=== PATIENT | female | born 2000 | race Caucasian/White ===

== ENCOUNTER 2021-06-22 00:38 | Emergency (ER) | payer MEDICAID, OTHER ==
[2021-06-22] MEDS ORDERED: Sodium Chloride 0.9% 10 ML Syringe FLUSH PRN (00:52)
[2021-06-22] MEDS ORDERED: Ketorolac 30 MG/ML SDV IVPUSH ONE (01:22)
[2021-06-22] MEDS ORDERED: diphenhydrAMINE 50 MG/ML SDV IVPUSH ONE (01:26)
[2021-06-22] MEDS ORDERED: Metoclopramide 10 MG/2 ML SDV IVPUSH ONE (01:26)
[2021-06-22] MEDS ORDERED: Lactated Ringers 1,000 ML IV ONE (01:26)
--- NOTE | 2021-06-22 01:32 | EDM.PDOC ---
ED HPI GENERAL MEDICAL PROBLEM - General Chief Complaint: General Stated Complaint: STAHL, CONGESTION, COUGH,LETHARGY Time Seen by Provider: 06/22/21 01:11 Source of Information: Reports: Patient - History of Present Illness INITIAL COMMENTS - FREE TEXT/NARRATIVE: Yanet is a 20 y/o female who presents to the ER with complaints of a headache that she reports she has had for 4 days now. She has tried OTC Tylenol and Motrin with no relief. Denies nausea or vomiting. Has not had a headache that has been this bad or last this many days before. She also does have a mild cough. Son was sick with URI about a week ago and had +RSV test. Headache Pain Score (Numeric/FACES): 9 - Related Data Allergies Allergy/AdvReac Type Severity Reaction Status Date / Time No Known Allergies Allergy Verified 06/22/21 00:48 Home Meds: Home Meds . [No Known Home Meds] 06/22/21 [History] Past Medical History HEENT History: Reports: Impaired Vision Psychiatric History: Reports: Anxiety, Depression ED ROS GENERAL - Review of Systems Review Of Systems: See Below Constitutional: Reports: No Symptoms HEENT: Reports: Other (Mild congestion) Respiratory: Reports: Cough Cardiovascular: Reports: No Symptoms Endocrine: Reports: No Symptoms GI/Abdominal: Reports: No Symptoms : Reports: No Symptoms Musculoskeletal: Reports: No Symptoms Skin: Reports: No Symptoms Neurological: Reports: Headache Psychiatric: Reports: No Symptoms Hematologic/Lymphatic: Reports: No Symptoms Immunologic: Reports: No Symptoms ED EXAM, GENERAL - Physical Exam Exam: See Below General Appearance: Alert, WD/WN, No Apparent Distress (Adult female) Eye Exam: Bilateral Eye: PERRL Ears: Normal External Exam, Normal Canal, Hearing Grossly Normal, Normal TMs Nose: Normal Inspection, Normal Mucosa, No Blood Throat/Mouth: Normal Inspection, Normal Lips, Normal Teeth, Normal Voice Head: Atraumatic, Normocephalic Neck: Normal Inspection, Supple Respiratory/Chest: No Respiratory Distress, Lungs Clear Cardiovascular: Normal Peripheral Pulses, Regular Rate, Rhythm, No Murmur GI/Abdominal: Normal Bowel Sounds, Soft, Non-Tender (Female) Exam: Deferred Rectal (Female) Exam: Deferred Back Exam: Normal Inspection, Full Range of Motion Extremities: Normal Inspection, Normal Range of Motion, No Pedal Edema, Normal Capillary Refill Neurological: Alert, Oriented, CN II-XII Intact, Normal Cognition Psychiatric: Normal Affect, Normal Mood Skin Exam: Warm, Dry, Intact, Normal Color Lymphatic: No Adenopathy Course - Vital Signs Text/Narrative:: 0111 The patient was seen by the SALES SERVICE REPRESENTATIVE. Labs ordered. Consider COVID or Migraine as main differentials at this time. A liter of LR, Toradol 30mg IVP, Benadryl 50mg IVP, and Reglan 20mg IVP ordered. 1425 Labs reviewed, CBC WBC=15.9 with mildly elevated neutrophils. COVID neg. Patient feeling better and headache decreasing. Will finish fluids and then send pt home. Note mildly elevated WBC, but no infection source. Will await further sx prior to abx. Written instructions given and the patient was discharged to home in stable condition. Last Recorded V/S: Last Vital Signs Temp 37.6 C 06/22/21 00:39 Pulse 90 06/22/21 00:39 Resp 18 06/22/21 00:39 BP 133/73 06/22/21 01:24 Pulse Ox 98 06/22/21 00:39 - Orders/Labs/Meds Orders: Active Orders 24 hr Category Date Time Status BASIC METABOLIC PANEL,POC [POC] Stat Lab 06/22/21 01:18 Results CORONAVIRUS COVID-19 ARTIS [MOLEC] Routine Lab 06/22/21 00:51 Received Sodium Chloride 0.9% [Saline Flush] Med 06/22/21 00:52 Active 10 ml FLUSH ASDIRECTED PRN Isolation [COMM] Routine Oth 06/22/21 00:52 Active Isolation [COMM] Routine Oth 06/22/21 00:52 Active Saline Lock Insert [OM.PC] Routine Oth 06/22/21 00:52 Ordered Medication Orders Sodium Chloride (Sodium Chloride 0.9% 10 Ml Syringe) 10 ml FLUSH ASDIRECTED PRN PRN Reason: Keep Vein Open Labs: Laboratory Tests 06/22/21 06/22/21 06/22/21 Range/Units 00:51 00:51 01:18 WBC 15.9 H (4.0-10.2) K/uL RBC 4.62 (3.77-5.09) M/uL Hgb 13.9 (11.7-15.5) g/dL Hct 42.0 (34.0-46.0) % MCV 90.7 (84.0-98.0) fL MCH 30.1 (28.2-33.3) pg MCHC 33.2 (31.7-36.0) g/dL RDW 12.5 (11.2-14.1) % Plt Count 305 (150-350) K/uL Neut % (Auto) 66.0 (45.0-80.0) % Lymph % (Auto) 23.2 (10.0-50.0) % [place]ie % (Auto) 7.2 (2.0-14.0) % Eos % (Auto) 3.3 (0.0-5.0) % Baso % (Auto) 0.3 (0.0-2.0) % Neut # (Auto) 10.52 H (1.40-7.00) K/uL Lymph # (Auto) 3.69 H (0.50-3.50) K/uL [place] # (Auto) 1.14 H (0.00-1.00) K/uL Eos # (Auto) 0.53 H (0.00-0.50) K/uL Baso # (Auto) 0.04 (0.00-0.20) K/uL POC Sodium (138-146) mmol/L Sodium Cancelled POC Potassium (3.5-4.5) mmol/L Potassium Cancelled POC Chloride (98-107) mmol/L Chloride Cancelled Carbon Dioxide Cancelled POC Total CO2 (23-30) mmol/L Anion Gap Cancelled POC Anion Gap (7-16) mmol/L POC BUN (8-26) mg/dL BUN Cancelled Creatinine Cancelled POC Creatinine (0.51-1.19) mg/dL Est Cr Clr Drug Dosing Cancelled Estimated GFR (MDRD) Cancelled Glucose Cancelled Calcium Cancelled POC Ioniz Calcium Edel (1.12-1.32) mmol/L SARS-CoV-2 Ag (Rapid) Negative (NEGATIVE) 06/22/21 Range/Units 01:18 WBC (4.0-10.2) K/uL RBC (3.77-5.09) M/uL Hgb (11.7-15.5) g/dL Hct (34.0-46.0) % MCV (84.0-98.0) fL MCH (28.2-33.3) pg MCHC (31.7-36.0) g/dL RDW (11.2-14.1) % Plt Count (150-350) K/uL Neut % (Auto) (45.0-80.0) % Lymph % (Auto) (10.0-50.0) % [place]ie % (Auto) (2.0-14.0) % Eos % (Auto) (0.0-5.0) % Baso % (Auto) (0.0-2.0) % Neut # (Auto) (1.40-7.00) K/uL Lymph # (Auto) (0.50-3.50) K/uL [place] # (Auto) (0.00-1.00) K/uL Eos # (Auto) (0.00-0.50) K/uL Baso # (Auto) (0.00-0.20) K/uL POC Sodium 142 (138-146) mmol/L Sodium POC Potassium 3.5 (3.5-4.5) mmol/L Potassium POC Chloride 107 (98-107) mmol/L Chloride Carbon Dioxide POC Total CO2 28 (23-30) mmol/L Anion Gap POC Anion Gap 11 (7-16) mmol/L POC BUN 7 L (8-26) mg/dL BUN Creatinine POC Creatinine 0.59 (0.51-1.19) mg/dL Est Cr Clr Drug Dosing Estimated GFR (MDRD) Glucose Calcium POC Ioniz Calcium Edel 1.24 (1.12-1.32) mmol/L SARS-CoV-2 Ag (Rapid) (NEGATIVE) Meds: Medications Generic Name Dose Route Start Last Admin Trade Name Freq PRN Reason Stop Dose Admin Sodium Chloride 10 ml 06/22/21 00:52 Sodium Chloride 0.9% 10 Ml Syringe FLUSH ASDIRECTED PRN Keep Vein Open Discontinued Medications Generic Name Dose Route Start Last Admin Trade Name Freq PRN Reason Stop Dose Admin Diphenhydramine HCl 50 mg 06/22/21 01:26 06/22/21 01:44 Diphenhydramine 50 Mg/Ml Sdv IVPUSH 06/22/21 01:27 50 mg ONETIME ONE Administration Lactated Ringer's 1,000 mls @ 999 mls/hr 06/22/21 01:26 06/22/21 01:36 Ringers, Lactated IV 06/22/21 02:26 999 mls/hr .BOLUS ONE Administration Ketorolac Tromethamine 30 mg 06/22/21 01:22 06/22/21 01:39 Ketorolac 30 Mg/Ml Sdv IVPUSH 06/22/21 01:23 30 mg ONETIME ONE Administration Metoclopramide HCl 20 mg 06/22/21 01:26 06/22/21 01:44 Metoclopramide 10 Mg/2 Ml Sdv IVPUSH 06/22/21 01:27 20 mg ONETIME ONE Administration Departure - Departure Time of Disposition: 02:35 Disposition: DC/Tfer W/I Hosp To Swing 61 Condition: Good Clinical Impression: Headache Qualifiers: Headache type: unspecified Headache chronicity pattern: acute headache Intractability: not intractable Qualified Code(s): R51.9 - Headache, unspecified Leukocytosis, unspecified Qualifiers: Leukocytosis type: unspecified Qualified Code(s): D72.829 - Elevated white blood cell count, unspecified - Discharge Information *PRESCRIPTION DRUG MONITORING PROGRAM REVIEWED*: Not Applicable *COPY OF PRESCRIPTION DRUG MONITORING REPORT IN PATIENT ANJALI: Not Applicable Instructions: General Headache Without Cause Referrals: PCP,Unknown [Primary Care Provider] - Forms: ED Department Discharge Additional Instructions: -Ibuprofen or acetaminophen as needed for pain -Rest -Drink plenty of fluids -If you develop further symptoms or are headache is not resolving, follow up with your PCP or return to the ER Sepsis Event Note (ED) - Focused Exam Vital Signs: Vital Signs Temp Pulse Resp BP Pulse Ox 06/22/21 01:24 133/73 06/22/21 00:39 37.6 C 90 18 154/91 H 98 - Problem List & Annotations (1) Headache SNOMED Code(s): 69680251 Code(s): R51.9 - HEADACHE, UNSPECIFIED Status: Acute Qualifiers: Headache type: unspecified Headache chronicity pattern: acute headache Intractability: not intractable Qualified Code(s): R51.9 - Headache, unspecified (2) Leukocytosis, unspecified SNOMED Code(s): 612969786, 836269122 Code(s): D72.829 - ELEVATED WHITE BLOOD CELL COUNT, UNSPECIFIED Status: Acute Qualifiers: Leukocytosis type: unspecified Qualified Code(s): D72.829 - Elevated white blood cell count, unspecified - Problem List Review Problem List Initiated/Reviewed/Updated: Yes - My Orders Last 24 Hours: My Active Orders 06/22/21 00:51 CORONAVIRUS COVID-19 ARTIS [MOLEC] Routine 06/22/21 00:52 Sodium Chloride 0.9% [Saline Flush] 10 ml FLUSH ASDIRECTED PRN Isolation [COMM] Routine Isolation [COMM] Routine Saline Lock Insert [OM.PC] Routine 06/22/21 01:18 BASIC METABOLIC PANEL,POC [POC] Stat - Assessment/Plan Last 24 Hours: My Active Orders 06/22/21 00:51 CORONAVIRUS COVID-19 ARTIS [MOLEC] Routine 06/22/21 00:52 Sodium Chloride 0.9% [Saline Flush] 10 ml FLUSH ASDIRECTED PRN Isolation [COMM] Routine Isolation [COMM] Routine Saline Lock Insert [OM.PC] Routine 06/22/21 01:18 BASIC METABOLIC PANEL,POC [POC] Stat Plan: See Above
[2021-06-22 01:36] LABS: POTASSIUM,POC 3.5 mmol/L (3.5-4.5)
== END 2021-06-22 02:50 | disposition home or self-care (01) ==
LOC: LL.ED 00:38
DX: R51.9 Headache, unspecified (principal); D72.829 Elevated white blood cell count, unspecified; Z20.822 Contact with and (suspected) exposure to COVID-19
CPT/HCPCS: 36415; 80047; 85025; 87426; 87804; 87807; 96374; 96375; 99284-25; J1200; J1885; J2765; J7120

== ENCOUNTER 2022-08-22 06:55 | Emergency (ER) | payer BC, MEDICAID | END 2022-08-22 07:30 | disposition home or self-care (01) | LOC: LL.ED 06:55 | DX: M77.8 Other enthesopathies, not elsewhere classified (principal); F17.210 Nicotine dependence, cigarettes, uncomplicated; F41.9 Anxiety disorder, unspecified; F32.A Depression, unspecified; Z79.899 Other long term (current) drug therapy | CPT/HCPCS: 99283 ==

== ENCOUNTER 2022-10-09 18:28 | Emergency (ER) | payer BC, MEDICAID ==
[2022-10-09] MEDS ORDERED: diphenhydrAMINE 25 MG Cap PO ONE (19:09)
[2022-10-09] MEDS ORDERED: Metoclopramide 10 MG Tab PO ONE (19:10)
[2022-10-09] MEDS ORDERED: Ketorolac 30 MG/ML SDV IM ONE (19:10)
[2022-10-09] MEDS ORDERED: diphenhydrAMINE 25 MG Cap ONE (19:29)
== END 2022-10-09 19:59 | disposition home or self-care (01) ==
LOC: LL.ED 18:28 → SUPCPDRO 18:28 → LL.ED 19:59
DX: G44.209 Tension-type headache, unspecified, not intractable (principal); E66.9 Obesity, unspecified; Z68.30 Body mass index [BMI] 30.0-30.9, adult; Z79.899 Other long term (current) drug therapy; Z72.0 Tobacco use
CPT/HCPCS: 96372; 99283; A9270-GY; J1885